=== PATIENT | male | born 1935 | race Caucasian/White ===

== ENCOUNTER 2020-08-09 18:32 | Inpatient (IN) | payer OTHER, SELFPAY ==
[~2020-08-09] VITALS: Ht 175.3 cm; Wt 69.4 kg
[2020-08-09 19:27] VITALS: BP 77/48
--- NOTE | 2020-08-09 20:20 | NUR ---
PT TAKEN TO BED 2 VIA GURNEY. RT AT BEDSIDE.
--- NOTE | 2020-08-09 20:24 | NUR ---
ERMD AT BEDSIDE.
--- NOTE | 2020-08-09 20:25 | NUR ---
85 Y/O MALE BIBA FROM [facility] FOR SOB & LABORED BREATHING SATURATION AT 74% ON NON-REBREATHER MASK AT 15L OF OXYGEN. PT PRESENTED WITH WORK OF BREATHING AND USE OF ACCESORY MUSCLES. LUNG SOUNDS WERE RHOCHI THROUGHOUT BOTH LUNG BRUNO A&P. PT ABLE TO RESPOND TO SOME COMMNADS. HE WAS AWAKE AND RESPONSIVE TO VOICE PERRL 5MM SLUGGISH. PER EMS PT ALSO PRESENTED WITH HYPOTENSION BP: 80/45. PT RECEIVED 700 ML OF 0.9% OF NS TO R WRIST 22 G IV SITE. NON-AMBULATORY ONLY ON BEDREST. PT WAS PLACED ON CARDIAC MONITORING, BP MONITORING AND PULSE OXIMETRY. PMHX: COPD, DM TYPE 2, CHF, COVID-19 (+), HYPERLIPIDEMIA, HTN. HF. NKA
--- NOTE | 2020-08-09 20:25 | NUR ---
RT AT BEDSIDE, PLACING PT ON HIGH FLOW NC. PER POLST MODIFIED STATUS TO DNI.
--- NOTE | 2020-08-09 20:43 | NUR ---
EKG PERFORMED AT BEDSIDE. EKG READS SINUS RHYTHM @ 79
[2020-08-09 21:19] LABS: HEMATOCRIT 50.6 % (36-52); HEMOGLOBIN 16.8 g/dL (12.0-18.0); MEAN CORPUSCULAR HEMOGLOBIN 29 pg (27-31); MEAN CORPUSCULAR HGB CONC 33 g/dL (33-37); MEAN CORPUSCULAR VOLUME 85.8 fL (80-94); PLATELET COUNT (AUTO) 170 K/uL (140-450); RED CELL DISTRIBUTION WIDTH 14.7 % (11.6-13.7); WHITE BLOOD COUNT (AUTO) 13.5 K/uL (4.8-10.8)
[2020-08-09 21:37] LABS: LYMPHOCYTES % (MANUAL) 15 % (20-46); MONOCYTES % (MANUAL) 3 % (5-12); PROMYELOCYTES % 1 % (0-0); PROTHROMBIN TIME 11.5 secs (10.8-13.4)
[2020-08-09 21:42] LABS: ALBUMIN 1.5 g/dL (3.4-5.0); ANION GAP 19.5 (8-16); ASPARTATE AMINOTRANSFERASE 127 U/L (15-37); CARBON DIOXIDE 13.2 mmol/L (21-32); CHLORIDE 114 mmol/L (98-107); CREATININE 1.8 mg/dL (0.6-1.3); GLUCOSE 132 mg/dL (74-106); LACTATE DEHYDROGENASE 661 U/L (85-227); POTASSIUM 3.7 mmol/L (3.5-5.1); SODIUM SERUM 143 mmol/L (136-145); TOTAL BILIRUBIN 0.2 mg/dL (0.0-1.0)
[2020-08-09 21:47] LABS: UREA NITROGEN, BLOOD 68 mg/dL (7-18)
[2020-08-09] MEDS ORDERED: AZITHROMYCIN 500 MG in DEXTROSE 5% 250 ML IV ONE (21:50)
[2020-08-09] MEDS ORDERED: DEXAMETHASONE 4 MG/ML VIAL IVP ONE (21:50)
[2020-08-09] MEDS ORDERED: cefTRIAXone 1,000 MG VIAL ONE (21:58)
[2020-08-09] MEDS ORDERED: AZITHROMYCIN 500 MG INJ VIAL IV ONE (21:59)
[2020-08-09] MEDS ORDERED: CALCIUM GLUCONATE 10% 1,000 MG in NACL 0.9% 50 ML IV ONE (22:00)
--- NOTE | 2020-08-09 22:00 | NUR ---
RECEIVED CRITICAL LAB REPORT FROM [facility] IN LAB OF LACTIC ACID 4.1. NOTIFIED DR. STEIN GAVE NONEW ORDERS AT THIS TIME.
[2020-08-09 22:05] LABS: APPEARANCE,URINE SL CLOUDY (CLEAR); BILIRUBIN,URINE NEGATIVE (NEGATIVE); BLOOD, URINE 3+ (NEGATIVE); COLOR,URINE YELLOW (YELLOW); LEUKOCYTE ESTERASE ,URINE 2+ (NEGATIVE); NITRITE, URINE NEGATIVE (NEGATIVE); UGLUCOSE NEGATIVE (NEGATIVE)
[2020-08-09] MEDS ORDERED: NACL 0.9% 1,000 ML IV ONE (22:15)
--- NOTE | 2020-08-09 22:39 | NUR ---
SPOKE TO CLARA FROM [facility] AND GAVE REPORT ON PATIENT'S CONDITION.
[2020-08-09] MEDS ORDERED: CALCIUM GLUCONATE 10% 1000 MG/10 ML VIAL ONE (22:50)
--- NOTE | 2020-08-09 23:00 | NUR ---
PER DR. STEIN RECEIVED VERBAL CONSENT FROM DAUGHTER JULIO CESAR HOLLAND FOR CENTRAL LINE PROCEDURE PLACEMENT.
[2020-08-09] MEDS ORDERED: LIDOCAINE/EPI 1% 1:100000 20 ML VIAL INJ ONE (23:15)
--- NOTE | 2020-08-09 23:15 | NUR ---
PT WAS PLACED ON NON-REBREATHER AT 15L OF OXYGEN. I9N ADDITION TO HIGH FLOW NC. PT O2 SAT BETWEEN 85%-90%. WILL CONTINUE TO MONITOR. ON CARDIAC MONITORING, BP MONITORING AND PULSE OXIMETRY.
--- NOTE | 2020-08-09 23:28 | NUR ---
ER MD DR. STEIN AT BEDSIDE FOR CENTRAL LINE PROCUDERE PLACEMENT. TIME OUT CALLED AT 2328. VS: 100.9, 70, 89, 37, 79/34. PRIMARY NURSE PRESENT AT BEDSIDE FOR PROCEDURE.
--- NOTE | 2020-08-09 23:38 | NUR ---
LAB CALLED TO INFORM THAT PT IS COVID +
--- NOTE | 2020-08-09 23:50 | NUR ---
POST CENTRAL LINE PLACEMENT VS: 100.9, 79, 34, 80/29, 87% O2 SAT VIA HIGH FLOW NC. PT WAS GIVEN LIDOCAINE WITH EPINIPHRENE 1% ADMINISTERED BY ER MD FOR PROCEDURE. PT TOLERATED PROCEDURE WELL. WILL FOLLOW UP WITH X-RAY FOR PLACEMENT VERIFICATION. PT TO REMAIN ON CARDIAC MONITORING, PULSE OXIMETRY AND BP MONITORING.
[2020-08-09 23:52] LABS: RBC,URINE >100 /HPF (0-5); WBC,URINE 80-100 /HPF (0-5)
[2020-08-09] MEDS ORDERED: NOREPINEPHRINE 8 MG in DEXTROSE 5% 250 ML IV PRN (23:55)
[2020-08-09] MEDS ORDERED: NACL 0.9% 500 ML IV ONE (23:55)
[2020-08-10] VITALS (10 sets, daily range): BP systolic 86–185; BP diastolic 36–91
[2020-08-10] MEDS ORDERED: LIDOCAINE/EPI 1% 1:100000 20 ML VIAL INJ ONE
--- NOTE | 2020-08-10 00:26 | NUR ---
XRAY AT BEDSIDE TO CONFIRM CENTRAL LINE PLACEMENT.
--- NOTE | 2020-08-10 00:27 | NUR ---
# 16 FR Garner catheter with 10 ml utilizing sterile technique. Immediate return of 100 ml YELLOW urine noted. Bedside drainage bag placed below level of bladder. Urine sample collected and sent to lab. Pt tolerated procedure WELL.
[2020-08-10] MEDS ORDERED: NOREPINEPHRINE 4 MG/4 ML VIAL IV ONE (01:10)
--- NOTE | 2020-08-10 01:40 | NUR ---
SEE IV SPREADSHEET FOR LEVOPHED. LEVOPHED STARTED AT THIS TIME. PT WILL BE TITRATED FOR A MAP >65.
--- NOTE | 2020-08-10 01:45 | NUR ---
INCREASED LEVOPHED TITRATION FROM 2MCG/MIN TO 4MCG/MIN. PT WAS NOT RESPONDING TO INITIAL DOSE.
--- NOTE | 2020-08-10 02:00 | NUR ---
INCREASED LEVOPHED TO 6MCG/MIN. PT'S MAP <65. PT NOT RESPONDING TO DOSE GIVEN. WILL CONTINUE TO MONITOR AND TITRATE ORDERED.
--- NOTE | 2020-08-10 04:00 | NUR ---
RECIEVED PT TRANFER FROM ER, PT A&0X2, ON NRB 15L ND HIGH FLOW 100%, SR ON MONITOR, PERIPHERAL PULSES PALPABLE, PT HAS VERÓNICA RIJ AND L-LEG 20 GAUGE RUNNING LEVOPHED AT 6MCG/KG/MIN, FC IN PLACE DRAINING BY GRAVITY, SKIN INTACT, DRY AND WARM, PT AFEBRILE, SHOWING NO SIGNS OF ACUTE DISTRESS, SAFETY MEASURES IN PLACE, WILL CONTINUE TO MONITOR
--- NOTE | 2020-08-10 04:03 | NUR ---
PT LAYING IN BED, WITH WORK OF BREATHING NOTED. O2 SAT AT 89% ON HIGH FLOW NC AND NON-REBREATHER. LEVOPHED RUNNING AT 6MCG/MIN. MAP AT 56 AT THIS TIME. UNABLE TO TITRATE PT AT THIS TIME. BP: 101/40. WILL CONTINUE TO MONITOR. ON CARDIAC MONITORING, BP MONITORING AND PULSE OXIMETRY. BED LOCKED AND IN LOWEST POSITION. PT PLACED IN [place] POSITION.
[2020-08-10] MEDS ORDERED: METO100T14 PO (04:47)
[2020-08-10] MEDS ORDERED: ASPI-1822 PO (04:47)
[2020-08-10] MEDS ORDERED: NITR0.4T2 SL (04:47)
[2020-08-10] MEDS ORDERED: INSU100S22 SUBQ (04:47)
[2020-08-10] MEDS ORDERED: METF500T PO (04:47)
[2020-08-10] MEDS ORDERED: BUPR-160 PO (04:47)
[2020-08-10] MEDS ORDERED: CLOP75TA55 PO (04:47)
[2020-08-10] MEDS ORDERED: HUM SUBQ (04:47)
[2020-08-10] MEDS ORDERED: NICO1PAT16 TD (04:47)
[2020-08-10] MEDS ORDERED: ISOS20TA13 PO (04:47)
[2020-08-10] MEDS ORDERED: FAMO-90 PO (04:47)
[2020-08-10] MEDS ORDERED: LISI-420 PO (04:47)
[2020-08-10] MEDS ORDERED: FURO-570 PO (04:47)
[2020-08-10] MEDS ORDERED: ARIP5TAB8 PO (04:47)
[2020-08-10] MEDS ORDERED: HYDR-5122 PO (04:47)
[2020-08-10] MEDS ORDERED: ATOR40TA PO (04:47)
--- NOTE | 2020-08-10 05:00 | NUR ---
PT WAS OBSERVED PULLING ON CENTRAL LINE AND REMOVING HIGH FLOW OXYGEN AND NON-REBREATHER MASK PT WAS DE-SATURATING. PT WAS EDUCATED ON THE IMPORTANCE OF KEEPING SUCH ITEMS. PT NOT FOLLOWING ANY REDIRECTION AT THIS TIME NOTIFIED DR. RICO GAVE NEW ORDERS FOR SOFT WRIST RESTRAINTS. ACCUCHECK AT THIS TIME WAS 230. DR RICO GAVE ORDER FOR ACCUHECKS AND SLIDDING SCALE COVERAGE.
[2020-08-10] MEDS ORDERED: INSULIN LISPRO SLIDING SCALE 100 UNITS/ML VIAL SUBQ PRN (05:50)
--- NOTE | 2020-08-10 06:10 | NUR ---
Patient will be admitted to care of DR. RICO. Admited to ICU OVERFLOW. Will go to room 128A. Belongings list completed. Report to RICCO CANTU GIVEN.
--- NOTE | 2020-08-10 07:20 | NUR ---
RECEIVED REPORT FROM KIMBERLI, AT PT WINDOW, FOR CONTINUITY OF CARE. A/O X1, AGITATED. HIGH FLOW @ 100% AND NON-REBREATHER @ 15 LPM. SATING HIGH 80'S-LOW 90'S. SOME WEAKNESS NOTED TO BUE/BLE. PURPOSEFUL MOVEMENTS NOTED. RED/PURPLE AREA NOTED TO SACRUM/COCCYX. SEE WOUND ASSESSMENT. MORE IN PLACE DRAINING CLEAR, YELLOW-URINE TO GRAVITY. RT IJ IN PLACE INFUSING LEVOPHED. PERIPHERAL IV NOTED TO LT FONTENOT, PATENT. BED LOW AND LOCKED. CALL LIGHT IN EASY REACH. WILL CONT TO MONITOR FOR CHANGES.
--- NOTE | 2020-08-10 07:33 | NUR ---
ENDORSED TO DAY SHIFT RN FOR CONTINUITY OF CARE
[2020-08-10] MEDS ORDERED: guaiFENesin DM 200/20 MG-10 ML 10 ML UDC PO PRN (08:15)
[2020-08-10] MEDS ORDERED: HYDROcodone/APAP 7.5/325 MG 1 TAB PO PRN (08:15)
[2020-08-10] MEDS ORDERED: ONDANSETRON 4 MG/2 ML VIAL IM/IVP PRN (08:15)
[2020-08-10] MEDS ORDERED: NACL 0.9% 1,000 ML IV SCH (08:15)
[2020-08-10] MEDS ORDERED: DOCUSATE SODIUM 100 MG GELCAP PO PRN (08:15)
[2020-08-10] MEDS ORDERED: ZOLPIDEM 5 MG TAB PO PRN (08:15)
[2020-08-10] MEDS ORDERED: ACETAMINOPHEN 325 MG TAB PO PRN (08:15)
[2020-08-10] MEDS ORDERED: POTASSIUM CHLORIDE 40 MEQ, LIDOCAINE MPF 1% 25 MG in NACL 0.9% 250 ML IV PRN (08:15)
[2020-08-10] MEDS ORDERED: NITROGLYCERIN 0.4 MG TAB SL PRN (08:20)
[2020-08-10] MEDS ORDERED: ALBUTEROL HFA MDI 90 MCG/ACTUATION 8 GM INH PRN (08:20)
[2020-08-10] MEDS: ASCORBIC ACID 500 MG TAB PO SCH (09:00)
[2020-08-10] MEDS: FUROSEMIDE 40 MG TAB PO SCH (09:00)
[2020-08-10] MEDS: PANTOPRAZOLE 40 MG TABEC PO SCH (09:00)
[2020-08-10] MEDS ORDERED: FAMOTIDINE 20 MG TAB PO SCH (09:00)
[2020-08-10] MEDS: NICOTINE TRANSD SYS 21 MG/24 HR PATCH TD SCH (09:00)
[2020-08-10] MEDS: AZITHROMYCIN 250 MG TAB PO SCH (09:00)
[2020-08-10] MEDS: ARIPiprazole 10 MG TAB PO SCH (09:00)
[2020-08-10] MEDS ORDERED: NON-FORMULARY ITEM (Bupropion HCl* (Wellbutrin Xl*) 1 TAB) PO SCH (09:00)
[2020-08-10] MEDS: METOPROLOL SUCCINATE 50 MG TABER PO SCH (09:00)
[2020-08-10] MEDS: ISOSORBIDE MONONITRATE 30 MG TABER PO SCH (09:00)
[2020-08-10] MEDS: ZINC SULF 220 MG CAP PO SCH (09:00)
[2020-08-10] MEDS ORDERED: COMMUNICATION ORDER MC SCH (09:00)
[2020-08-10] MEDS: lisinopriL 20 MG TAB PO SCH (09:00)
[2020-08-10] MEDS: FAMOTIDINE 20 MG TAB PO SCH (09:00)
[2020-08-10] MEDS ORDERED: remdesivir CLINICAL MONITORING 1 EA MISC MC PRN (10:05)
[2020-08-10] MEDS: INSULIN LISPRO 100 UNITS/ML VIAL SUBQ SCH ×2 (11:30→16:30)
[2020-08-10 11:58] LABS: ALBUMIN 2.4 g/dL (3.4-5.0); AMYLASE 41 U/L (25-115); ANION GAP 20.6 (8-16); ASPARTATE AMINOTRANSFERASE 207 U/L (15-37); CHLORIDE 109 mmol/L (98-107); FREE T4 (FREE THYROXINE) 1.02 ng/dL (0.76-1.46); GLUCOSE 267 mg/dL (74-106); LIPASE 76 U/L (73-393); PHOSPHORUS 4.3 mg/dL (2.5-4.9); POTASSIUM 4.6 mmol/L (3.5-5.1); SODIUM SERUM 142 mmol/L (136-145); THYROID STIMULATING HORMONE 1.62 uIU/mL (0.34-3.74); TOTAL BILIRUBIN 0.5 mg/dL (0.0-1.0)
[2020-08-10] MEDS ORDERED: REMDESIVIR (EUA) 200 MG in NACL 0.9% 100 ML IV SCH (12:00)
[2020-08-10 12:04] LABS: UREA NITROGEN, BLOOD 73 mg/dL (7-18)
--- NOTE | 2020-08-10 12:15 | NUR ---
LEFT VOICEMAIL FOR MD R/T PT PULLED RT IJ CENTAL LINE. AWAITING RETURN CALL.
--- NOTE | 2020-08-10 12:24 | NUR ---
LEFT SECOND VOICEMAIL R/T PT REMOVED CENTRAL LINE AND ABNORMAL LAB VALUES. AWAITING CALL BACK.
[2020-08-10] MEDS ORDERED: hePARIN / DEXT 5% PREMIX 250 ML IV SCH ×2 (12:30→13:13)
[2020-08-10] MEDS ORDERED: HEPARIN PER PHARMACY MC PRN (12:30)
--- NOTE | 2020-08-10 13:31 | NUR ---
PT REMOVED PICC AND PERIPHERAL IV TO LLE. UNABLE TO PLACE PERIPHERAL IV X3 ATTEMPTS. DR RICO AWARE OF NO IV ACCESS. ALL DUE IV MEDICATIONS AWAITING PICC LINE NURSE AT THIS TIME.
--- NOTE | 2020-08-10 13:48 | NUR ---
DISCHARGE PLANNING: CONTACTED [facility] AT [phone], PER MALCOLM NICHOLS, PATIENT IS NOT ON A BED HOLD ONE OF THEIR SHORT TERM PATIENTS BUT THEY ARE ABLE TO TAKE HIM BACK. Addendum: 08/11/20 at 1321 by Yanna Sierra CORRECTION TO PREVIOUS DOCUMENTATION: [facility] NOT [facility]. Addendum: 08/11/20 at 1323 by Yanna Sierra RECEIVED A MESSAGE FROM PATIENT'S DAUGHTER SHAQ CONFIRMING THAT THEY WANT THE PATIENT TO GO BACK TO [facility]. CALL WAS RETURNED, SPOKE TO SHAQ AT [phone]. AND SHE CONFIRMED THAT PATIENT WILL RETURN TO [facility] ONCE STABLE FOR DC. Addendum: 08/11/20 at 1330 by Yanna Sierra JESUS HARRISON UPDATED OF THE PATIENT'S CONDITION. Addendum: 08/11/20 at 1633 by Yanna Sierra LATE ENTRY: RECEIVED A CALL FROM PATIENT'S DAUGHTER SHAQ STATING THAT SHE RECEIVED A CALL FROM DR. RICO STATING THAT THE PATIENT IS NOT DOING WELL ANS MIGHT NOT MAKE IT TO THE NIGHT. SHE REQUESTED IF THEY CAN COME SEE THE PATIENT BY THE WINDOW. JEF MADE AWARE. INFORMED BRENDA BYRD. MET WITH PATIENT'S DAUGHTER SHAQ BY THE WINDOW OF 128B, SHE STATED THAT SHE SPOKE TO SOMEONE (COULD NOT REMEMBER THE NAME) YESTERDAY REQUESTING IF A ARCHITECTURE TECHNICIAN CAN PERFORM ANOINTING OF THE SICK TO THE PATIENT AND GAVE HER AN OK. INFORMED HER THAT I WILL CLARIFY AND WILL CALL HER BACK. SPOKE WITH JIGNESH, STATED SHE IS OK WITH IT LONG THE ARCHITECTURE TECHNICIAN IS AWARE THAT PATIENT IS COVID POSITIVE. SPOKE TO SHAQ, SHE STATED THAT THE ARCHITECTURE TECHNICIAN IS AWARE. I ALSO EXPLAINED TO HER THE RISKS AND BENEFITS, SHE VERBALIZED UNDERSTANDING.
--- NOTE | 2020-08-10 13:54 | NUR ---
P.T. NOTES P.T. EVAL COMPLETED; REFER TO EVAL FOR DETAILS.
[2020-08-10 14:13] LABS: MAGNESIUM 2.1 mg/dL (1.8-2.4)
[2020-08-10] MEDS ORDERED: LORazepam 2 MG/ML VIAL ONE (14:17)
[2020-08-10] MEDS ORDERED: LORazepam 2 MG/ML VIAL IM/IVP ONE (14:25)
[2020-08-10] MEDS ORDERED: LORazepam 2 MG/ML VIAL IM/IVP SCH (14:30)
--- NOTE | 2020-08-10 14:30 | NUR ---
ONE TIME DOSE OF ATIVAN ADMINISTERED PER, DR TRACY. TOLERATED WELL. WILL FOLLOW UP
[2020-08-10] MEDS ORDERED: LORazepam 2 MG/ML VIAL IVP SCH (15:00)
[2020-08-10] MEDS: SODIUM BICARBONATE 8.4% 50 MEQ in NACL 0.45% 1,000 ML IV SCH ×2 (15:17→23:33)
[2020-08-10 15:21] LABS: BARBITURATE, URINE NEGATIVE ng/ml (NEG <=200); BENZODIAZEPINE, URINE NEGATIVE ng/mL (NEG <=200); CANNABINOID, URINE NEGATIVE ng/mL (NEG <=50); COCAINE, URINE NEGATIVE ng/mL (NEG <=300); OPIATE, URINE NEGATIVE ng/mL (NEG <=2000); PHENCYCLIDINE SCREEN,URINE NEGATIVE ng/mL (NEG <=25)
[2020-08-10] MEDS ORDERED: metFORMIN 500 MG TAB PO SCH (17:00)
[2020-08-10 17:28] LABS: CHOL/HDL RATIO 5.2 (1-4.5); HDL CHOLESTEROL 18 mg/dL (40-60); LDL (CALC) 42 mg/dL (60-100); TRIGLYCERIDES 174 mg/dL (30-150)
--- NOTE | 2020-08-10 19:15 | NUR ---
REPORT GIVEN TO NIGHTSHIFT NURSE, AT PT WINDOW, FOR CONTINUITY OF CARE.
--- NOTE | 2020-08-10 19:35 | NUR ---
RECEIVED PATIENT ON HFNC 40L/100% WITH NRB ON TOP. SATURATION 85-87. NO INC WOB NOTED. WILL CONT TO MONITOR
--- NOTE | 2020-08-10 20:15 | NUR ---
PER PICC LINE NURSE JACQUELIN AGUIRRE TO USE VERÓNICA PICC LINE. CONFIRMED VIA XRAY. ALL MEDS SWITCHED TO VERÓNICA PICC LINE. D/C's PERIPHERAL IV AT LEFT FA, INFILTRATED.
[2020-08-10] MEDS ORDERED: NON-FORMULARY ITEM (Insulin Glargine,Hum.rec.anlog (Lantus Solostar) 15 UNIT) SUBQ SCH (21:00)
[2020-08-10] MEDS: INSULIN LANTUS 100 UNITS/ML 10 ML VIAL SUBQ SCH (21:55)
[2020-08-10] MEDS: ATORVASTATIN 20 MG TAB PO SCH (23:33)
--- NOTE | 2020-08-10 23:50 | NUR ---
TEMPERATURE LOW, 95.8, SKIN COOL TO TOUCH. LEO HUGGER APPLIED. SPOKE WITH PATIENTS DAUGHTER AMALIA. CONFIRMED IT IS NOT ALLOWED TO REPORT UPDATES TO OTHER DAUGHTER MARY. HOLLAND CONFIRMED, PT ALWAYS TRENDS COLD, PT WILL KICK OFF ALL BLANKETS AND WARMERS AND COMPLAIN OF BEING HOT AND COLD. WILL MONITOR.
[2020-08-11] VITALS (11 sets, daily range): BP systolic 94–147; BP diastolic 50–76
--- NOTE | 2020-08-11 00:30 | NUR ---
PER PROTOCOL, DECREASED HEPARIN DRIP. SCHEDULED PTT ORDERED.
--- NOTE | 2020-08-11 01:35 | NUR ---
PT SCREAMING AND KICKING RN's TRYING TO YANK OFF ALL EQUIPMENT AND GOWNS, SCREAMING "LET ME OUT OF HERE". DR. MANUEL AWARE, CONFIRMED ATIVAN ORDER. CARRIED OUT.
[2020-08-11] MEDS: LORazepam 2 MG/ML VIAL IM/IVP PRN ×2 (01:49→16:20)
[2020-08-11 07:08] LABS: BASOPHILS # (AUTO) 0.1 K/uL (0.00-0.22); BASOPHILS % (AUTO) 0.5 % (0.0-2.0); EOSINOPHILS # (AUTO) 0.1 K/uL (0-0.4); EOSINOPHILS % (AUTO) 0.5 % (0.0-4.0); HEMATOCRIT 45.6 % (36-52); HEMOGLOBIN 15.3 g/dL (12.0-18.0); LYMPHOCYTES # (AUTO) 0.6 K/uL (2.0-11.5); LYMPHOCYTES % (AUTO) 4.8 % (20.5-51.1); MEAN CORPUSCULAR HEMOGLOBIN 28 pg (27-31); MEAN CORPUSCULAR HGB CONC 34 g/dL (33-37); MEAN CORPUSCULAR VOLUME 84.5 fL (80-94); MONOCYTES # (AUTO) 0.4 K/uL (0.8-1.0); MONOCYTES % (AUTO) 3.1 % (1.7-9.3); NEUTROPHILS # (AUTO) 10.8 K/uL (1.8-7.7); NEUTROPHILS % (AUTO) 91.1 % (42.2-75.2); PLATELET COUNT (AUTO) 210 K/uL (140-450); RED CELL DISTRIBUTION WIDTH 14.8 % (11.6-13.7); WHITE BLOOD COUNT (AUTO) 11.9 K/uL (4.8-10.8)
[2020-08-11] MEDS: INSULIN LISPRO 100 UNITS/ML VIAL SUBQ SCH ×3 (07:30→16:30)
[2020-08-11 07:43] LABS: ALBUMIN 1.9 g/dL (3.4-5.0); ASPARTATE AMINOTRANSFERASE 143 U/L (15-37); CHLORIDE 114 mmol/L (98-107); CREATININE 1.2 mg/dL (0.6-1.3); GLUCOSE 137 mg/dL (74-106); SODIUM SERUM 148 mmol/L (136-145); TOTAL BILIRUBIN 0.3 mg/dL (0.0-1.0)
[2020-08-11 08:13] LABS: MAGNESIUM 1.8 mg/dL (1.8-2.4)
--- NOTE | 2020-08-11 08:42 | NUR ---
PATIENT HAS BEEN SCREENED AND CATEGORIZED HIGH NUTRITION RISK. PATIENT WILL BE SEEN WITHIN 1-2 DAYS OF ADMISSION. 08/11/[address]
[2020-08-11] MEDS: FAMOTIDINE 20 MG TAB PO SCH (09:00)
[2020-08-11] MEDS: ASCORBIC ACID 500 MG TAB PO SCH (09:00)
[2020-08-11] MEDS: lisinopriL 20 MG TAB PO SCH (09:00)
[2020-08-11] MEDS: METOPROLOL SUCCINATE 50 MG TABER PO SCH (09:00)
[2020-08-11] MEDS: buPROPion 150 MG TABER PO SCH (09:00)
[2020-08-11] MEDS: ZINC SULF 220 MG CAP PO SCH (09:00)
[2020-08-11] MEDS: ISOSORBIDE MONONITRATE 30 MG TABER PO SCH (09:00)
[2020-08-11] MEDS: PANTOPRAZOLE 40 MG TABEC PO SCH (09:00)
[2020-08-11] MEDS: ARIPiprazole 10 MG TAB PO SCH (09:00)
[2020-08-11] MEDS: AZITHROMYCIN 250 MG TAB PO SCH (09:00)
[2020-08-11] MEDS: FUROSEMIDE 40 MG TAB PO SCH (09:00)
--- NOTE | 2020-08-11 09:50 | NUR ---
PT ON HIGH FLOW NC AT 40L AND NRB MASK, INCREASED RR AT 30, PT CONFUSED, UNABLE TO FOLLOW COMMANDS, ATTEMPTED ORIENTING PT WITH AMPLIFIER HEARING AID WITHOUT SUCCESS, PT UNABLE TO TAKE ANY PO, PO MEDS HELD, DR RICO MADE AWARE.
[2020-08-11 10:23] LABS: UREA NITROGEN, BLOOD 63 mg/dL (7-18)
[2020-08-11] MEDS: NICOTINE TRANSD SYS 21 MG/24 HR PATCH TD SCH (10:28)
[2020-08-11] MEDS: SODIUM BICARBONATE 8.4% 50 MEQ in NACL 0.45% 1,000 ML IV SCH ×2 (10:30→20:20)
--- NOTE | 2020-08-11 11:51 | NUR ---
SOCIAL WORK NOTE: Patient's Orientation Unable To Assess Information Provided By SHAQ CHEN - DAUGHTER Comments SW WAS UNABLE TO MEET PATIENT AT BEDSIDE. SW COMPLETED ASSESSMENT WITH PATIENT'S DAUGHTER. Bunker Worker, Realtionship and Phone Number AMALIA BROWN DAUGHTER/HCDM SHAQ CHEN DAUGHTER/HCDM 2 [phone] Healthcare Power of Shovel Engineer No Does Patient Have a POLST No Identifying Problems No Social Work Triggers Is A Social Work Consult Needed No Mandate Report Filed No Explanation Of Identifying Problems PATIENT IS AN 85-YEAR-OLD MALE ADMITTED FOR COVID, PNEUMONIA, AND SEPSIS. PATIENT HAS PMHX OF DIABETES AND HYPERTENSION. Admitted From Care Home Facility Care Home Facility [facility] - [phone] Pre-Admission Level Of Functioning Status Total Care Level Of Functioning Comment PER DAUGHTER, PATIENT REQUIRES TOTAL ASSISTANCE. Prior Resources/Services Used In Last 12 Months SNF Rehab/Skilled Prior DME Home Oxygen Power Wheelchair/Scooter Wheelchair Dialysis Comments N/A Other Living Situation/Comment PER DAUGHTERS, PATIENT [place] [facility] [place]. DAUGHTER STATED THAT RESID[place] PRIOR TO [facility] [place] [address] [place] [address]. Patient Had Caregiver No Home Support No Caregiver Issues Financial Issues No Known Financial Issue Referral To The Financial Counselor Needed No Factors/Needs SNF/NH Placement Pt/Rep Participated In Discharge Plan Yes Patient/Family Agress With Discharge Plan Yes Discharge Plan Comments TENTATIVE DISCHARGE PLAN IS FOR PATIENT TO RETURN TO [facility]. DC Plan Status Initiated
[2020-08-11] MEDS: REMDESIVIR (EUA) 100 MG in NACL 0.9% 100 ML IV SCH (12:00)
--- NOTE | 2020-08-11 13:02 | NUR ---
DR TRACY AT BEDSIDE, OK TO DOWN GRADE TO TELE STATUS, BUT MUST BE CLOSELY MONITORED BY A SITTER OR CLOSE TO NURSING STATION.
[2020-08-11 13:13] LABS: CREATININE,URINE RANDOM 154 mg/dL (30-125)
[2020-08-11 13:14] LABS: CHLORIDE,URINE RANDOM 40 mmol/L (110-250); URINE SODIUM, RANDOM 30 mmol/l (40-220)
[2020-08-11] MEDS ORDERED: TPN PER PHARMACY MC PRN (14:05)
--- NOTE | 2020-08-11 14:31 | NUR ---
08/11/20 RD INITIAL ASSESSMENT COMPLETED PLEASE REFER TO NUTRITION ASSESSMENT UNDER CARE ACTIVITY FOR ESTIMATED NUTRITIONAL NEEDS. 1. CONTINUE TPN PER PHARMACY PROTOCOL 2. WHEN MEDICALLY APPROPRIATE INCREASE KCAL AND PROTEIN NEEDS TO 75% OF ESTIMATED NUTRIENT NEEDS 3. CONTACT RD PRN FOR ANY CHANGES 4. RD TO FOLLOW-UP 2-3 DAYS, HIGH RISK LYUDMILA COLLINS, RD
--- NOTE | 2020-08-11 14:47 | NUR ---
ECHOCARDIOGRAH TECH AT BEDSIDE
[2020-08-11] MEDS: BLOOD GLUCOSE MONITORING 1 DEV DEV FS SCH ×2 (18:00→23:37)
--- NOTE | 2020-08-11 19:35 | NUR ---
RECEIVED PATIENT ON HIGH FLOW NASAL CANULA 40L/100%. TEMPERATURE AT 36 DEGRESS. WATER BAG CHECKED. WILL CONT TO MONITOR
[2020-08-11] MEDS: INSULIN LANTUS 100 UNITS/ML 10 ML VIAL SUBQ SCH (20:33)
[2020-08-11] MEDS: ATORVASTATIN 20 MG TAB PO SCH (20:33)
[2020-08-12] VITALS: BP 123/74
[2020-08-12] MEDS: LORazepam 2 MG/ML VIAL IM/IVP PRN (00:24)
[2020-08-12 04:00] VITALS: BP 112/59
--- NOTE | 2020-08-12 04:40 | NUR ---
PATIENT REMAINS ON HIGH FLOW 40L/100%. VITAL SIGN STABLE. WATER BAG CHECKED. WILL CONT TO MONITOR
[2020-08-12] MEDS: BLOOD GLUCOSE MONITORING 1 DEV DEV FS SCH ×2 (06:00→12:03)
[2020-08-12 06:52] LABS: CHOL/HDL RATIO 4.1 (1-4.5); MAGNESIUM 1.8 mg/dL (1.8-2.4)
[2020-08-12 06:55] LABS: ANION GAP 16.4 (8-16); ASPARTATE AMINOTRANSFERASE 86 U/L (15-37); CARBON DIOXIDE 21.7 mmol/L (21-32); CHLORIDE 117 mmol/L (98-107); CREATININE 1.2 mg/dL (0.6-1.3); GLUCOSE 193 mg/dL (74-106); POTASSIUM 4.1 mmol/L (3.5-5.1); SODIUM SERUM 151 mmol/L (136-145); TOTAL BILIRUBIN 0.4 mg/dL (0.0-1.0); UREA NITROGEN, BLOOD 47 mg/dL (7-18)
[2020-08-12 07:09] LABS: BASOPHILS % (AUTO) 0.1 % (0.0-2.0); HEMATOCRIT 42.1 % (36-52); HEMOGLOBIN 14.3 g/dL (12.0-18.0); LYMPHOCYTES # (AUTO) 0.2 K/uL (2.0-11.5); MEAN CORPUSCULAR HEMOGLOBIN 29 pg (27-31); MEAN CORPUSCULAR HGB CONC 34 g/dL (33-37); MEAN CORPUSCULAR VOLUME 85.1 fL (80-94); MONOCYTES # (AUTO) 0.2 K/uL (0.8-1.0); MONOCYTES % (AUTO) 2.1 % (1.7-9.3); NEUTROPHILS # (AUTO) 9.6 K/uL (1.8-7.7); NEUTROPHILS % (AUTO) 95.8 % (42.2-75.2); PLATELET COUNT (AUTO) 247 K/uL (140-450); RED BLOOD CELL COUNT(AUTO) 4.95 MIL/uL (4.20-6.10); RED CELL DISTRIBUTION WIDTH 14.6 % (11.6-13.7); WHITE BLOOD COUNT (AUTO) 10.1 K/uL (4.8-10.8)
--- NOTE | 2020-08-12 07:30 | NUR ---
RECEIVED REPORT FROM THEOLOGY PROFESSOR NURSE DOTTIE FOR CONTINUITY OF CARE. PATIENT IS LYING SUPINE ON BED, LETHARGIC, NOT ALERT, UNABLE TO FOLLOW COMMAND, NOR MAKE NEED KNOWN. RESPIRATION SHALLOW AND RAPID ON HIGH FLOW 100%, AND 15 LMP NON-REBREATHER, SPO2 AT 88% AT THIS TIME, LUNGS SOUND RHONCHI ON AUSCULTATION. PUPILS 3 MM, SLUGGISH, DOES NOT TRACK, BOTH EYES CLOSES, NO CONTACT. FLACC 0. AMPLIFIER ON PATIENT AND GLASSES ON PATIENT NOTED. NO SIGNS OF ACUTE DISTRESS NOTED. IV ON VERÓNICA PICC LINE, RUNNING SODIUM BICARBONATE 1 AMP AT 100 ML/HR AND HEPARIN DRIP AT 1,050 UNIT/HR, NEXT DRAW AT 08/12/2020 0900 PER REPORT. SKIN WARM TO TOUCH, SACRAL DTI PER REPORT. PATIENT IS INCONTINENT, MORE IN PLACE, DRAINING WITH GRAVITY. SAFETY MEASURES IN PLACE. FALL RISK PROTOCOL, ASPIRATION PROTOCOL, AND ENHANCED DROPLET PROTOCOL IN PLACE, BED IN LOW POSITION, BED ALARM ACTIVATED, AND BED LOCKED.
[2020-08-12] MEDS: INSULIN LISPRO 100 UNITS/ML VIAL SUBQ SCH ×3 (07:39→16:30)
[2020-08-12 08:00] VITALS: BP 145/79
--- NOTE | 2020-08-12 08:45 | NUR ---
RECEIVED CALL FROM DAUGHTER SHAQ, UPDATED SHAQ WITH PATIENT'S CURRENT CONDITION AND SHE WAS AWARE AND SAID" I WILL NOTIFY MY SISTER AMALIA WELL".
[2020-08-12] MEDS: PANTOPRAZOLE 40 MG TABEC PO SCH (09:00)
[2020-08-12] MEDS: FUROSEMIDE 40 MG TAB PO SCH (09:00)
[2020-08-12] MEDS: ASCORBIC ACID 500 MG TAB PO SCH (09:00)
[2020-08-12] MEDS: buPROPion 150 MG TABER PO SCH (09:00)
[2020-08-12] MEDS: AZITHROMYCIN 250 MG TAB PO SCH (09:00)
[2020-08-12] MEDS: METOPROLOL SUCCINATE 50 MG TABER PO SCH (09:00)
[2020-08-12] MEDS: ISOSORBIDE MONONITRATE 30 MG TABER PO SCH (09:00)
[2020-08-12] MEDS: ARIPiprazole 10 MG TAB PO SCH (09:00)
[2020-08-12] MEDS: lisinopriL 20 MG TAB PO SCH (09:00)
[2020-08-12] MEDS: FAMOTIDINE 20 MG TAB PO SCH (09:00)
[2020-08-12] MEDS: ZINC SULF 220 MG CAP PO SCH (09:00)
[2020-08-12] MEDS: NICOTINE TRANSD SYS 21 MG/24 HR PATCH TD SCH (10:10)
--- NOTE | 2020-08-12 10:22 | NUR ---
ATTEMPTED TO GIVE MEDS 3X, PATIENT IS NOT ALERT, LETHARGIC, AND DOES NOT FOLLOW COMMAND, CANNOT SWALLOW WELL, DUE TO ASPIRATION PRECAUTION, HELD AM MEDS, WILL INFORM MD OF PATIENT'S CURRENT CONDITION. SAFETY MEASURES IN PLACE. BED IN LOW POSITION, AND BED LOCKED. FALL RISK PROTOCOL AND ENHANCED DROPLET PROTOCOL IN PLACE.
--- NOTE | 2020-08-12 10:27 | NUR ---
DR HERNANDEZ IS ROUNDING ON PATIENT, INFORMED THAT PATIENT IS NOT SAFE TO TAKE ANY PO MEDS, MD WAS AWARE AND SAID "I WILL CONTACT THE FAMILY AND DISCUSS WITH THEM".
--- NOTE | 2020-08-12 11:27 | NUR ---
RECEIVED A CALL FROM SARA DUTTON, UPDATED HER WITH PATIENT'S CURRENT CONDITION, [employer] IS AWARE. Addendum: 08/12/20 at 1202 by Jaqueline Hernandez RN WRONG PATIENT.
[2020-08-12 12:00] VITALS: BP 129/68
--- NOTE | 2020-08-12 12:02 | NUR ---
DR TRACY IS ROUNDING ON PATIENT.
[2020-08-12] MEDS: REMDESIVIR (EUA) 100 MG in NACL 0.9% 100 ML IV SCH (12:06)
--- NOTE | 2020-08-12 12:06 | NUR ---
BLOOD GLUCOSE CHECKED 175, COVERAGE HELD DUE TO PATIENT IS NOT ABLE TO EAT. ADMINISTERED SCHEDULED REMDESIVIR PER MD ORDER. PATIENT IS RESTING ON BED WITH BOTH EYES CLOSED, AWAKE TO STERNAL RUBS FOR LESS THAN 10 SECONDS, FLACC 0. RESPIRATION TACHYPNEA ON HIGH FLOW AND NONREBREATHER, RR 39, SPO2 AT 90% AT THIS TIME. SAFETY MEASURES IN PLACE.
--- NOTE | 2020-08-12 12:57 | NUR ---
ATTEMPTED 2X TO ASSIST PATIENT TO EAT LUNCH, PATIENT AWAKE FOR 5 SECONDS AND CLOSED HIS EYES, UNSAFE TO FEED AT THIS TIME. SAFETY MEASURES IN PLACE.
--- NOTE | 2020-08-12 13:45 | NUR ---
PTT 77.2, DECREASED DRIP TO 900 UNIT/HR. AND RECHECK PTT AT 1944.
--- NOTE | 2020-08-12 13:54 | NUR ---
RECEIVED A CALL FROM AMALIA BROWN PATIENT'S DAUGHTER, PER AMALIASHAQ AND HER HAS SPOKE WITH DR MANUEL, AND THEY CAME UP WITH A DECISION AND WOUND LIKE TO SPEAK WITH DR MANUEL DIRECTLY. NOTIFIED DR MANUEL AND PROVIDED HER WITH AMALIA PHONE #[phone], AMALIA WAS AWARE.
[2020-08-12 16:00] VITALS: BP 137/62
--- NOTE | 2020-08-12 16:49 | NUR ---
HUMALOG HELD DUE TO PATIENT IS NOT EATING AND TPN IS NOT YET STARTED, PATIENT IS LETHARGIC, UNABLE TO FOLLOW COMMAND. FLACC 0. SAFETY MEASURES IN PLACE.
--- NOTE | 2020-08-12 17:37 | NUR ---
RECEIVED A CALL FROM AMALIA AND SAID THERE ARE VIEWING PATIENT FROM THE WINDOW AND READY TO START COMFORT CARE. CALLED DR MANUEL. DR MANUEL WAS AWARE.
[2020-08-12] MEDS ORDERED: MORPHINE SULFATE 50 MG in NACL 0.9% 45 ML IV PRN (17:40)
--- NOTE | 2020-08-12 17:53 | NUR ---
PT TAKEN OFF OF HIGH FLOW AND NRB AND PLACED ON 2L NASAL CANNULA PER REQUEST OF . NURSE AWARE OF CHANGE.
--- NOTE | 2020-08-12 18:32 | NUR ---
MORPHINE DRIP STARTED AT 2 MG/HR. FAMILY ARE BY WINDOW-SIDE. FAMILY SPOKE WITH PATIENT OVER THE PHONE AND PHONE PLACE BY PATIENT'S AMPLIFIER.
--- NOTE | 2020-08-12 19:10 | NUR ---
ENDORSED PATIENT TO RECORDS TECHNICIAN NURSE, PATIENT IN ON MORPHINE DRIP AND 2 LPM VIA NC FOR COMFORT CARE.
--- NOTE | 2020-08-12 19:15 | NUR ---
RECEIVED REPORT FROM DAY SHIFT RN; PT HAS EYES CLOSED, OPENS EYES TO STIMULI. PT ON MORPHINE DRIP, NC 2L FOR COMFORT. ABD SOFT NON DISTENDED, MORE CATH IN PLACE, DARK FILIPE URINE. SKIN NON INTACT; DTI TO SACRAL AREA. PT REPOSTIONED, BED LOCKED IN LOWEST POSITION,. HOB<30 DEGREES. WILL CONTINUE TO OBSERVE.
[2020-08-12 20:00] VITALS: BP 82/53
[2020-08-12] MEDS ORDERED: INSULIN REGULAR IV SCH ×5 (20:00)
[2020-08-12] MEDS ORDERED: DEXTROSE 50% IV SCH ×5 (20:00)
[2020-08-12] MEDS ORDERED: MULTIVITAMIN IV SCH ×5 (20:00)
[2020-08-12] MEDS ORDERED: HUMAN IV SCH ×5 (20:00)
[2020-08-12] MEDS ORDERED: [UNRECOGNIZED DRUG - OTHER] IV SCH ×5 (20:00)
--- NOTE | 2020-08-12 23:11 | NUR ---
PT ASYSTOLE; PROUNOUNCED BY MARKET RELATIONSHIP MANAGER, [place]. 2350: FAMILY; SHAQ AND AMALIA NOTIFIED OF PT EXPIRATION 0015: ASSISTANT TEACHING PROFESSOR/ [employer] NOTIFIED; BODY RELEASED. 0045: [facility] NOTIFIED; ETA 5-6 HOURS - [phone]
--- NOTE | 2020-08-13 05:45 | NUR ---
BODY PICKED UP BY [facility].
== END 2020-08-13 07:44 | disposition expired | DRG 871 ==
LOC: MED 18:32 → MTU 08-10 00:46 → EEVIPCON 08-10 00:46 → MMU 08-10 03:49
PROVIDERS: ADMIT Family Medicine; ATTEND Family Medicine
PROC: XW033E5 Introduction of Remdesivir Anti-infective into Peripheral Vein, Percutaneous Approach, New Technology Group 5 (ICD-10-PCS; 2020-08-10)
PROC: 02HV33Z Insertion of Infusion Device into Superior Vena Cava, Percutaneous Approach (ICD-10-PCS; 2020-08-10)
PROC: B548ZZA Ultrasonography of Superior Vena Cava, Guidance (ICD-10-PCS; 2020-08-10)
PROC: 5A0945A Assistance with Respiratory Ventilation, 24-96 Consecutive Hours, High Flow/Velocity Cannula (ICD-10-PCS; 2020-08-10)
PROC: XW13325 Transfusion of Convalescent Plasma (Nonautologous) into Peripheral Vein, Percutaneous Approach, New Technology Group 5 (ICD-10-PCS; principal; 2020-08-12)
DX: A41.89 Other specified sepsis (principal); R65.21 Severe sepsis with septic shock; U07.1 COVID-19; J69.0 Pneumonitis due to inhalation of food and vomit; N17.0 Acute kidney failure with tubular necrosis; J96.01 Acute respiratory failure with hypoxia; I21.A1 Myocardial infarction type 2; E43 Unspecified severe protein-calorie malnutrition; J44.0 Chronic obstructive pulmonary disease with (acute) lower respiratory infection; I45.2 Bifascicular block; N12 Tubulo-interstitial nephritis, not specified as acute or chronic; Z66 Do not resuscitate; B96.1 Klebsiella pneumoniae [K. pneumoniae] as the cause of diseases classified elsewhere; E11.9 Type 2 diabetes mellitus without complications; E83.51 Hypocalcemia; F03.90 Unspecified dementia, unspecified severity, without behavioral disturbance, psychotic disturbance, mood disturbance, and anxiety; F17.200 Nicotine dependence, unspecified, uncomplicated; F39 Unspecified mood [affective] disorder; I25.10 Atherosclerotic heart disease of native coronary artery without angina pectoris; I12.9 Hypertensive chronic kidney disease with stage 1 through stage 4 chronic kidney disease, or unspecified chronic kidney disease; E11.22 Type 2 diabetes mellitus with diabetic chronic kidney disease; E78.5 Hyperlipidemia, unspecified; N18.30 Chronic kidney disease, stage 3 unspecified; Z78.1 Physical restraint status; Z79.82 Long term (current) use of aspirin; Z79.899 Other long term (current) drug therapy; Z79.4 Long term (current) use of insulin; Z68.22 Body mass index [BMI] 22.0-22.9, adult
CPT/HCPCS: 36415; 36556; 51702; 71045; 76770; 80053; 80305; 81001; 82150; 82436; 82550; 82553; 82570; 82728; 82948; 83036; 83605; 83615; 83690; 83735; 84100; 84300; 84436; 84439; 84443; 84479; 84484; 85025; 85379; 85384; 85610; 85651; 85730; 86140; 86886; 86900; 86901; 87040; 87081; 87086; 87804; 93005; 96365; 96367; 96368; 96375; 97110; 97112; 97163-GP; 97530; 99291; A9153; J0456; J0610; J0696; J1100; J1644; J1815; J2001; J2060; J2270; J3490; J7060; P9017; U0003